=== PATIENT | female | born 1995 | race African-American/Black ===

== ENCOUNTER 2017-07-31 20:23 | Emergency (ER) | payer MEDICAID ==
[~2017-07-31] VITALS: Ht 160 cm; Wt 44.9 kg
[~2017-07-31 20:23] MED LIST: KEFLEX500 MG ORAL; NKM; PROVERA10 MG PO
[2017-07-31] MEDS ORDERED: IBUPROFEN600 MG ORAL (20:43)
[2017-07-31 21:01] VITALS: BP 127/80
--- NOTE | 2017-07-31 21:02 | Emergency Room Report ---
History of Present Illness General Chief Complaint: Sore Throat Source: Patient Present Illness HPI 21-year-old female presents with sore throat for 2 days. States sore throat, +mild dry cough. Pain with swallowing however has still been able to eat/drink. No change in voice. No pain with extension/movement of neck. Denies fever or chills. No sick contacts. Allergies: Coded Allergies: No Known Allergies (Unverified , 07/31/17) Patient History Past Medical History: see triage record Past Surgical History: none Pertinent Family History: none Last Menstrual Period: 06/2017 Now: No Reviewed Nursing Documentation: PMH: Agreed, PSxH: Agreed Nursing Documentation-PMH Past Medical History: No Stated History Hx Hypertension: Yes Review of Systems All Other Systems: negative except mentioned in HPI Physical Exam Vital Signs Date Time Temp Pulse Resp B/P (MAP) Pulse Ox O2 Delivery O2 Flow Rate FiO2 07/31/17 20:31 98.2 85 16 127/80 97 Room Air 98.2 Sp02 EP Interpretation: reviewed, normal General Appearance: normal inspection, well appearing, no apparent distress, alert, GCS 15, non-toxic Head: normocephalic, atraumatic Eyes: bilateral eye normal inspection, bilateral eye PERRL, bilateral eye EOMI ENT: uvula midline, pharyngeal erythema, other - no exudates Neck: normal inspection, full range of motion, supple Respiratory: normal inspection, lungs clear, normal breath sounds, no respiratory distress, no retraction, no wheezing, speaking full sentences, chest symmetrical Cardiovascular #1: normal inspection, regular rate, rhythm, no edema, normal capillary refill Cardiovascular #2: 2+ radial (R), 2+ radial (L) Gastrointestinal: normal inspection, non tender, soft, non-distended, no guarding Musculoskeletal: normal inspection, back normal, normal range of motion, non- tender Neurologic: normal inspection, alert, oriented x3, responsive, motor strength/ tone normal, sensory intact, normal gait, speech normal Psychiatric: normal inspection, judgement/insight normal, memory normal Skin: normal inspection, normal color, no rash, warm/dry, well hydrated, normal turgor Medical Decision Making Diagnostic Impression: Primary Impression: Viral pharyngitis ER Course 21-year-old female with sore throat DDX: Viral vs. infectious mononucleosis vs. bacterial pharyngitis vs. allergies Other serious causes such as REGULATORY AFFAIRS COORDINATOR / RPA / deep space neck infection history/physical most consistent with viral pharyngitis Plan: Motrin,. Abx not indicated at this time ER course: Patient remains stable in ED. Pt states improvement of pain with motrin. Disposition: Patient will be discharged to home. Patient will follow up with primary care doctor within 5 days. Strict return precautions discussed with patient such as worsening throat pain/swelling, dysphagia, high fever or chills, shortness of breath, abdominal pain, which may indicate severe illness. Patient verbalized understanding and agreed with plan. Please note that this Emergency Department Report was dictated using [employer] driver technology software, occasionally this can lead to erroneous entry secondary to interpretation by the dictation equipment. Last Vital Signs Date Time Temp Pulse Resp B/P (MAP) Pulse Ox O2 Delivery O2 Flow Rate FiO2 07/31/17 20:31 98.2 85 16 127/80 97 Room Air 98.2 Disposition: HOME, SELF-CARE Condition: Improved Scripts Ibuprofen* (MOTRIN*) 600 Mg Tablet 600 MG ORAL Q8H Y for For Pain, #30 TAB 0 Refills Prov: Vincenzo Adams M.D. 07/31/17 Patient Instructions: Sore Throat Vincenzo Adams M.D. Jul 31, 2017 21:02
== END 2017-08-01 01:18 | disposition home or self-care (01) ==
LOC: EMR 21:04
DX: J02.8 Acute pharyngitis due to other specified organisms (principal); B97.89 Other viral agents as the cause of diseases classified elsewhere; I10 Essential (primary) hypertension
CPT/HCPCS: 99283

== ENCOUNTER 2018-02-28 13:55 | Emergency (ER) | payer MEDICAID ==
[~2018-02-28] VITALS: Ht 160 cm; Wt 47.2 kg
[~2018-02-28 13:55] MED LIST changes: +IBUPROFEN600 MG ORAL
[2018-02-28 14:27] VITALS: BP 119/72
--- NOTE | 2018-02-28 14:46 | Emergency Room Report ---
History of Present Illness General Chief Complaint: Upper Extremity Injury Source: Patient Present Illness HPI 22-year-old female patient presents ER complaining of left thumbnail injury. Patient reports that earlier today one of her acrylic nails got caught on the bed and lifted her nailbed. Reports bleeding at site of injury, states it is well controlled with gauze. Reports she is right-hand dominant. Reports the nail was able to be pulled up however the "blood made it stick" and cannot be pulled up now. Denies loss of sensation. Denies loss of range of motion. Allergies: Coded Allergies: No Known Allergies (Unverified , 07/31/17) Patient History Past Medical History: see triage record Now: Yes - 7 weeks Reviewed Nursing Documentation: PMH: Agreed; PSxH: Agreed Nursing Documentation-PMH Past Medical History: No Stated History Hx Hypertension: Yes Review of Systems All Other Systems: negative except mentioned in HPI Physical Exam Vital Signs Date Time Temp Pulse Resp B/P (MAP) Pulse Ox O2 Delivery O2 Flow Rate FiO2 02/28/18 14:05 98.4 90 18 116/76 98 Room Air 98.4 Sp02 EP Interpretation: reviewed, normal General Appearance: well appearing, no apparent distress, alert, GCS 15, non- toxic Head: normocephalic, atraumatic Eyes: bilateral eye normal inspection, bilateral eye PERRL ENT: hearing grossly normal, normal pharynx, no angioedema, normal voice, uvula midline, moist mucus membranes Neck: full range of motion Respiratory: lungs clear, normal breath sounds, no rhonchi, no respiratory distress, no accessory muscle use, no wheezing, speaking full sentences Cardiovascular #1: regular rate, rhythm, no edema Cardiovascular #2: 2+ radial (R), 2+ radial (L) Musculoskeletal: back normal, digits/nails normal, gait/station normal, normal range of motion, non-tender, other - left thumbnail: Partially avulsed nail, no laceration, Cuticle intact, large acrylic nail present, dried blood present, no surrounding erythema or edema, sensation intact to light touch, Neurologic: alert, oriented x3, responsive, motor strength/tone normal, sensory intact Psychiatric: mood/affect normal Skin: no rash Lymphatic: no adenopathy Medical Decision Making PA Attestation Dr. Edwards is my supervising Physician whom patient management has been discussed with. Diagnostic Impression: Primary Impression: Nail avulsion, finger ER Course Pt. presents to the ED c/o thumbnail pain. Ddx considered but are not limited to ingrown toenail, nail avulsion, paronychia , felon, cellulitis, tinea unguinum. Vital signs: are WNL, pt. is afebrile ER COURSE: Physical exam shows: no loss, no damaged cuticle or surrounding tissue requiring laceration repair with sutures. full range of motion of fingers, sensation intact to light touch, no deformity, low suspicion for fracture, does not require x-ray at this time. Finger clean and dry using saline and peroxide. Wound dressed with sterile dressing and bacitracin. Will not remove nail, possible keep in place has splint, advised to followup with patient primary care provider. Discuss referral to hand specialist. contact information provided to patient. Informed patient can wash it tomorrow, but do not soak in water. Apply topical abx and redress wound. Followup with PCP. Wound check in 2-3 days. ER precautions given. DISCHARGE: Rx provided for Bacitracin Rx provided for Tylenol At this time pt is stable for d/c to home. Patient is resting comfortably, in no acute distress, nontoxic appearing, talking without difficulty. Patient to take medications as instructed Will provide with patient care instructions and any necessary prescriptions. Care plan and follow-up instructions provided. Patient instructed to follow-up with primary care provider in 3 - 5 days. Patient questions asked and answered. Patient reports understanding and agreement to treatment plan. ER precautions given. Patient instructed to return to ER immediately for any new or worsening of symptoms including but not limited to increasing SOB, persistent fever, chest pain, intractable vomiting. - Please note that this Emergency Department Report was dictated using [employer] customer service representative technology software, occasionally this can lead to erroneous entry secondary to interpretation by the dictation equipment. Last Vital Signs Date Time Temp Pulse Resp B/P (MAP) Pulse Ox O2 Delivery O2 Flow Rate FiO2 02/28/18 14:27 98.4 70 18 119/72 98 Room Air 98.4 Disposition: HOME, SELF-CARE Condition: Stable Scripts Bacitracin/Polymyxin B Sulfate (BACITRACIN-POLYMYXIN OINTMENT) 28.35 Gm Oint...g. 1 APPLIC TP BID, #28 GM Prov: Henry Botello 02/28/18 Acetaminophen* (TYLENOL EXTRA STRENGTH*) 500 Mg Tablet 500 MG ORAL Q8H PRN for Prn Headache/Temp > 101, #30 TAB 0 Refills Prov: Henry Botello 02/28/18 Patient Instructions: Nail Avulsion Additional Instructions: Followup with primary care provider in 3 -5 days. Request referral to hand specialist. Take medications as directed. Patient questions asked and answered. ER precautions given, patient instructed to return to ER immediately for any new or worsening of symptoms. Henry Botello Feb 28, 2018 14:46
[2018-02-28] MEDS ORDERED: Bacitracin Oint UD TOPIC ONE (15:00)
[2018-02-28] MEDS ORDERED: BACITRACIN-P28.35 GM TP (15:12)
[2018-02-28] MEDS ORDERED: TYLENOL EXTRA500 MG ORAL (15:12)
[2018-02-28 15:29] VITALS: BP 119/72
== END 2018-02-28 15:29 | disposition home or self-care (01) ==
LOC: EMR 14:41
DX: S61.102A Unspecified open wound of left thumb with damage to nail, initial encounter (principal); W23.0XXA Caught, crushed, jammed, or pinched between moving objects, initial encounter; Y92.003 Bedroom of unspecified non-institutional (private) residence as the place of occurrence of the external cause; I10 Essential (primary) hypertension
CPT/HCPCS: 99283

== ENCOUNTER 2018-04-16 20:20 | Emergency (ER) | payer MEDICAID ==
[~2018-04-16] VITALS: Ht 160 cm; Wt 48.5 kg
[~2018-04-16 20:20] MED LIST changes: +BACITRACIN-P28.35 GM TP; +TYLENOL EXTRA500 MG ORAL
[2018-04-16] MEDS ORDERED: NKM (20:44)
[2018-04-16] MEDS ORDERED: Albuterol ud Inhalation HHN ONE (21:00)
[2018-04-16 21:06] LABS: APPEARANCE,URINE CLEAR; BILIRUBIN, URINE NEGATIVE (NEGATIVE); GLUCOSE, URINE (UA) 1+ (NEGATIVE); KETONES,URINE 1+ (NEGATIVE); LEUKOCYTE ESTERASE ,URINE 2+ (NEGATIVE); NITRITE,URINE NEGATIVE (NEGATIVE); PH,URINE 6 (4.5-8.0); PROTEIN,URINE NEGATIVE (NEGATIVE); UROBILINOGEN,URINE 1 MG/DL (0.0-1.0)
[2018-04-16 21:07] LABS: COLOR,URINE YELLOW
--- NOTE | 2018-04-16 21:07 | Emergency Room Report ---
History of Present Illness General Chief Complaint: Dyspnea/Respdistress Source: Patient Present Illness HPI Patient is A2. Patient is partially 13 weeks . Patient presents emergency department today complaining of one day of abdominal cramping. She denies any vaginal discharge or vaginal bleeding or dysuria urinary frequency. Patient also complains of 3 months of exertional dyspnea. She states that she gets short of breath whenever she is walking or exercising. She denies any chest pain. Denies any cough runny nose or sore throat. No other complaint or noted. Symptoms noted to be severe. No other modifying factors. No other associated signs and symptoms. No other complaints were noted. Allergies: Coded Allergies: No Known Allergies (Unverified , 07/31/17) Patient History Past Medical History: HTN Past Surgical History: none Pertinent Family History: none Social History: Denies: smoking, alcohol use, drug use Last Menstrual Period: november 2017 Now: Yes : 5 Para: 2 Reviewed Nursing Documentation: PMH: Agreed; PSxH: Agreed Nursing Documentation-PMH Past Medical History: No Stated History Hx Hypertension: Yes Review of Systems All Other Systems: negative except mentioned in HPI Physical Exam Vital Signs Date Time Temp Pulse Resp B/P (MAP) Pulse Ox O2 Delivery O2 Flow Rate FiO2 04/16/18 20:40 98.4 100 16 115/69 100 Room Air Sp02 EP Interpretation: reviewed, normal General Appearance: normal inspection, well appearing, no apparent distress, alert Head: normocephalic, atraumatic Eyes: bilateral eye normal inspection ENT: normal ENT inspection, hearing grossly normal, normal voice Neck: normal inspection, full range of motion, supple, no bony tend Respiratory: normal inspection, lungs clear, normal breath sounds, no respiratory distress, no retraction, no wheezing Cardiovascular #1: regular rate, rhythm, no edema Gastrointestinal: normal inspection, normal bowel sounds, non tender, soft, no guarding, no hernia, other - Gravid uterus Genitourinary: no CVA tenderness Musculoskeletal: normal inspection, back normal, normal range of motion Neurologic: normal inspection, alert, responsive, speech normal Psychiatric: normal inspection, judgement/insight normal, mood/affect normal Skin: normal inspection, normal color, no rash Medical Decision Making Diagnostic Impression: Primary Impression: Dyspnea Additional Impression: Pelvic cramping ER Course Patient presents emergency department today with multiple complaints. Differential diagnoses include electrolyte abnormality, threatened AB, normal just name a few. Patient's shortness breath. Be secondary to either DVT pulmonary embolism asthma anemia just name a few. Patient's exam however is fairly benign. No evidence of DVT. No evidence of pulmonary embolism. No evidence of travel. We'll obtain laboratory workup ultrasound of the pelvis therapeutic trial of albuterol. And sign case out to Dr. Jose for final disposition. Last Vital Signs Date Time Temp Pulse Resp B/P (MAP) Pulse Ox O2 Delivery O2 Flow Rate FiO2 04/16/18 20:40 98.4 100 16 115/69 100 Room Air Jose Lovell MD Apr 16, 2018 21:07
[2018-04-16 21:20] VITALS: BP 115/69
[2018-04-16 21:27] LABS: BASOPHILS % (AUTO) 0.9 % (0.0-2.0); EOSINOPHILS % (AUTO) 5.2 % (0.0-3.0); HEMATOCRIT 34.9 % (37.0-47.0); HEMOGLOBIN 11.7 G/DL (12.0-16.0); MEAN CORPUSCULAR VOLUME 94 FL (80-99); MONOCYTES % (AUTO) 5.9 % (1.0-10.0); PLATELET COUNT 231 K/UL (150-450); RED BLOOD COUNT 3.72 M/UL (4.20-5.40); WHITE BLOOD COUNT 12.1 K/UL (4.8-10.8)
[2018-04-16 21:35] LABS: ANION GAP 8 mmol/L (5-15); BLOOD UREA NITROGEN 7 mg/dL (7-18); CALCIUM 9.1 MG/DL (8.5-10.1); CARBON DIOXIDE 24 MMOL/L (21-32); CHLORIDE 104 MMOL/L (98-107); CREATININE 0.5 MG/DL (0.55-1.30); POTASSIUM 3.3 MMOL/L (3.5-5.1); SODIUM 136 MMOL/L (136-145)
[2018-04-16 21:39] LABS: ALANINE AMINOTRANSFERASE 20 U/L (12-78); ALBUMIN 2.8 G/DL (3.4-5.0); ALBUMIN/GLOBULIN RATIO 0.7 (1.0-2.7); ALKALINE PHOSPHATASE 70 U/L (46-116); ASPARTATE AMINO TRANSFERASE 14 U/L (15-37); BILIRUBIN,TOTAL < 0.1 MG/DL (0.2-1.0)
[2018-04-16 23:10] VITALS: BP 118/73
[2018-04-16] MEDS ORDERED: ALBUTEROL SULF8.5 GM INH (23:15)
--- NOTE | 2018-04-17 02:11 | Emergency Room Report ---
Physical Exam Vital Signs Date Time Temp Pulse Resp B/P (MAP) Pulse Ox O2 Delivery O2 Flow Rate FiO2 04/16/18 20:40 98.4 100 16 115/69 100 Room Air 04/16/18 21:08 21 Medical Decision Making Diagnostic Impression: Primary Impression: Dyspnea Qualified Codes: R06.00 - Dyspnea, unspecified Additional Impression: Pelvic cramping ER Course Hospital Course 22 yo F present to ED c/o SOB. also c/o cramping. + Clinical course Patient initially seen and evaluated by Dr. Lovell; please see his note for full history and physical Labs- minimal leukocytosis, electrolytes okay, beta hCG greater than 40,000, UA unremarkable Pelvic ultrasound-IUP detected with heart rate Upon reassessment patient states she feels better. Breathing improved. We'll discharge with inhaler. Close follow-up with REFUGE WORKER. Diagnosis - dyspnea, pelvic crampng Stable and discharged to home with Rx albuterol. Followup with PMD/REFUGE WORKER. Return to ED if symptoms recur or worsen Labs Test 04/16/18 20:53 04/16/18 21:10 Urine Color Yellow Urine Appearance Clear Urine pH 6 (4.5-8.0) Urine Specific [place] 1.025 (1.005-1.035) Urine Protein Negative (NEGATIVE) Urine Glucose (UA) 1+ (NEGATIVE) Urine Ketones 1+ (NEGATIVE) Urine Blood Negative (NEGATIVE) Urine Nitrite Negative (NEGATIVE) Urine Bilirubin Negative (NEGATIVE) Urine Urobilinogen 1 MG/DL (0.0-1.0) Urine Leukocyte Esterase 2+ (NEGATIVE) Urine RBC 0-2 /HPF (0 - 2) Urine WBC 2-4 /HPF (0 - 2) Urine Squamous Epithelial Cells Few /LPF (NONE/OCC) Urine Bacteria Few /HPF (NONE) Urine HCG, Qualitative Positive (NEGATIVE) White Blood Count 12.1 K/UL (4.8-10.8) Red Blood Count 3.72 M/UL (4.20-5.40) Hemoglobin 11.7 G/DL (12.0-16.0) Hematocrit 34.9 % (37.0-47.0) Mean Corpuscular Volume 94 FL (80-99) Mean Corpuscular Hemoglobin 31.5 PG (27.0-31.0) Mean Corpuscular Hemoglobin Concent 33.6 G/DL (32.0-36.0) Red Cell Distribution Width 11.0 % (11.6-14.8) Platelet Count 231 K/UL (150-450) Mean Platelet Volume 9.2 FL (6.5-10.1) Neutrophils (%) (Auto) 69.0 % (45.0-75.0) Lymphocytes (%) (Auto) 19.0 % (20.0-45.0) Monocytes (%) (Auto) 5.9 % (1.0-10.0) Eosinophils (%) (Auto) 5.2 % (0.0-3.0) Basophils (%) (Auto) 0.9 % (0.0-2.0) Sodium Level 136 MMOL/L (136-145) Potassium Level 3.3 MMOL/L (3.5-5.1) Chloride Level 104 MMOL/L (98-107) Carbon Dioxide Level 24 MMOL/L (21-32) Anion Gap 8 mmol/L (5-15) Blood Urea Nitrogen 7 mg/dL (7-18) Creatinine 0.5 MG/DL (0.55-1.30) Estimat Glomerular Filtration Rate > 60 mL/min (>60) Glucose Level 106 MG/DL (74-106) Calcium Level 9.1 MG/DL (8.5-10.1) Total Bilirubin < 0.1 MG/DL (0.2-1.0) Aspartate Amino Transf (AST/SGOT) 14 U/L (15-37) Alanine Aminotransferase (ALT/SGPT) 20 U/L (12-78) Alkaline Phosphatase 70 U/L (46-116) Total Protein 7.0 G/DL (6.4-8.2) Albumin 2.8 G/DL (3.4-5.0) Globulin 4.2 g/dL Albumin/Globulin Ratio 0.7 (1.0-2.7) Lipase 88 U/L (73-393) Human Chorionic Gonadotropin, Quant 47757 mIU/mL (1-6) CT/MRI/US Diagnostic Results CT/MRI/US Diagnostic Results : Imaging Test Ordered: OB US Impression IUP noted. + FHR. no free fluid or blood Last Vital Signs Date Time Temp Pulse Resp B/P (MAP) Pulse Ox O2 Delivery O2 Flow Rate FiO2 04/16/18 23:10 98.4 70 19 118/73 99 Room Air 21 Status: improved Disposition: HOME, SELF-CARE Condition: Stable Scripts Albuterol Sulfate* (ALBUTEROL SULFATE MDI*) 8.5 Gm Hfa.aer.ad 2 PUFF INH Q6H, #1 EA 0 Refills Prov: Alexis Jose MD 04/16/18 Referrals: [facility] (PCP) Patient Instructions: Threatened Miscarriage, [id number] Alexis Jose MD Apr 17, 2018 02:11
--- NOTE | 2018-04-17 11:32 | Diagnostic Imaging Report ---
Indication: Abdominal pain, cramping, patient Technique: Transabdominal and transvaginal images Comparison: 11/27/2012 nonobstructive pelvic ultrasound Findings: Exam is somewhat limited, as fetus was apparently experiencing hiccups during the examination, per discussion with technologist Within the endometrium, there is a single live intrauterine . This demonstrates positive heart activity, heart rate 186 bpm. Posterior fundal placenta, clears the internal cervical os. Cervix is closed. Grossly normal amniotic fluid volume. measurements as follows: Biparietal diameter 26 mm, 14 weeks 4 days; head circumference 98 mm, 14 weeks 4 days; abdominal circumference 83 mm, 14 weeks 4 days; femur length 16 mm, 14 weeks 4 days. Estimated gestational age by average of ultrasound measurements is 14 weeks 4 days. Estimated gestational age by dates is not available. Estimated date of delivery 10/11/2018. Due to early stage of and emergent nature of the exam, detailed assessment of anatomy not performed. The kidneys, grossly normal spine, normal cord insertion, four-chamber heart are demonstrated. Neither ovary is demonstrated. No free cul-de-sac fluid demonstrated. Impression: 14 week 4 day, by average of ultrasound measurements, single live intrauterine . No unusual features
== END 2018-04-16 23:30 | disposition home or self-care (01) ==
LOC: EMR 20:57
DX: O26.891 Other specified pregnancy related conditions, first trimester (principal); R06.00 Dyspnea, unspecified; R25.2 Cramp and spasm; O16.1 Unspecified maternal hypertension, first trimester; Z3A.12 12 weeks gestation of pregnancy
CPT/HCPCS: 36415; 76801; 76805; 76830; 80053; 81003; 81025; 83690; 84702; 85025; 86850; 86900; 86901; 94640; 94664; 99284

== ENCOUNTER 2019-04-12 15:44 | Emergency (ER) | payer MEDICAID ==
[~2019-04-12] VITALS: Ht 160 cm; Wt 49.0 kg
[~2019-04-12 15:44] MED LIST changes: +ALBUTEROL SULF8.5 GM INH
[2019-04-12 16:08] VITALS: BP 121/82
[2019-04-12] MEDS ORDERED: Omnipaque-300 100ml vial INJ PRN (16:30)
[2019-04-12 17:01] LABS: BASOPHILS % (AUTO) 1.4 % (0.0-2.0); EOSINOPHILS % (AUTO) 3.2 % (0.0-3.0); HEMATOCRIT 40.4 % (37.0-47.0); HEMOGLOBIN 13.6 G/DL (12.0-16.0); LYMPHOCYTES % (AUTO) 29.6 % (20.0-45.0); MEAN CORPUSCULAR VOLUME 95 FL (80-99); MONOCYTES % (AUTO) 4.9 % (1.0-10.0); NEUTROPHILS % (AUTO) 60.8 % (45.0-75.0); PLATELET COUNT 266 K/UL (150-450); RED BLOOD COUNT 4.27 M/UL (4.20-5.40); RED CELL DISTRIBUTION WIDTH 11.2 % (11.6-14.8); WHITE BLOOD COUNT 8.2 K/UL (4.8-10.8)
[2019-04-12 17:20] LABS: APPEARANCE,URINE TURBID; BILIRUBIN, URINE NEGATIVE (NEGATIVE); COLOR,URINE RED; GLUCOSE, URINE (UA) NEGATIVE (NEGATIVE); KETONES,URINE 1+ (NEGATIVE); LEUKOCYTE ESTERASE ,URINE 3+ (NEGATIVE); NITRITE,URINE NEGATIVE (NEGATIVE); PH,URINE 7 (4.5-8.0); PROTEIN,URINE 4+ (NEGATIVE); UROBILINOGEN,URINE 1 MG/DL (0.0-1.0)
[2019-04-12 17:27] LABS: ANION GAP 8 mmol/L (5-15); BLOOD UREA NITROGEN 11 mg/dL (7-18); CALCIUM 9.2 MG/DL (8.5-10.1); CARBON DIOXIDE 31 MMOL/L (21-32); CHLORIDE 103 MMOL/L (98-107); CREATININE 0.7 MG/DL (0.55-1.30); POTASSIUM 3.5 MMOL/L (3.5-5.1); SODIUM 142 MMOL/L (136-145)
[2019-04-12 17:32] LABS: ALANINE AMINOTRANSFERASE 26 U/L (12-78); ALBUMIN 4.3 G/DL (3.4-5.0); ALBUMIN/GLOBULIN RATIO 1.1 (1.0-2.7); ALKALINE PHOSPHATASE 98 U/L (46-116); ASPARTATE AMINO TRANSFERASE 19 U/L (15-37); BILIRUBIN,TOTAL 0.5 MG/DL (0.2-1.0)
--- NOTE | 2019-04-12 18:23 | Diagnostic Imaging Report ---
Indication: Abdominal pain Technique: Continuous helical transaxial imaging of the abdomen and pelvis was obtained from the lung bases to the pubic symphysis during intravenous contrast administration. Coronal 2-D reformats were also obtained. Study obtained in a Siemens sensation [address] Automatic Exposure Control was utilized. Total Dose length Product (DLP): 498.[address] Dose Index Volume (CTDIvol): 6 mGy Comparison: None Findings: The lung bases are clear. The liver and kidneys, adrenal glands, pancreas and spleen are unremarkable. There is a tiny cyst in the lower pole the right kidney. Bowel gas pattern is nonobstructive. Uterus noted. Urinary bladder is nondistended. Appendix is normal. IMPRESSION: No acute findings. Normal appendix. The CT scanner at [facility] is accredited by the [place] [employer] and the scans are performed using dose optimization techniques as appropriate to a performed exam including Automatic Exposure control.
--- NOTE | 2019-04-12 18:29 | Emergency Room Report ---
History of Present Illness General Chief Complaint: Abdominal Pain Source: Patient Present Illness HPI 23-year-old female with no symptom past medical history who is 5 months and never had her visit with her NEON MOLDER here complaining of 3 days of epigastric abdominal pain and suprapubic pain rating at 5 out of 10 , intermittent, without radiation. Denies nausea and vomiting, diarrhea and constipation. Denies fever and chills, URI symptoms, urinary frequency, and other associated symptoms. Has not taken medication for symptom relief. Patient appears to be slim with abdomen still not distended. Reports that her menses have resumed and she is currently on her period. Allergies: Coded Allergies: No Known Allergies (Unverified , 07/31/17) Patient History Past Medical History: see triage record Past Surgical History: unable to obtain Pertinent Family History: unable to obtain Last Menstrual Period: CURRENTLY ON HER PERIOD Now: No Immunizations: UTD Reviewed Nursing Documentation: PMH: Agreed; PSxH: Agreed Nursing Documentation-PMH Past Medical History: No History, Except For Hx Hypertension: Yes Review of Systems All Other Systems: negative except mentioned in HPI Physical Exam Vital Signs Date Time Temp Pulse Resp B/P (MAP) Pulse Ox O2 Delivery O2 Flow Rate FiO2 04/12/19 16:02 98.2 85 16 112/75 (87) 98 Room Air Sp02 EP Interpretation: reviewed, normal General Appearance: no apparent distress, alert, GCS 15, non-toxic Head: normocephalic, atraumatic Eyes: bilateral eye normal inspection, bilateral eye PERRL ENT: hearing grossly normal, normal pharynx, no angioedema, normal voice Neck: full range of motion, supple/symm/no masses Respiratory: chest non-tender, lungs clear, normal breath sounds, no wheezing, speaking full sentences Cardiovascular #1: regular rate, rhythm, no edema, no murmur Gastrointestinal: normal bowel sounds, non tender, soft, no guarding, no hernia , no pulsatile mass, no rebound, distended Rectal: deferred Genitourinary: normal inspection, no CVA tenderness Musculoskeletal: back normal, normal range of motion, no calf tenderness, gait/ station normal, non-tender Neurologic: alert, motor strength/tone normal, oriented x3, sensory intact, responsive, speech normal Psychiatric: judgement/insight normal, memory normal, mood/affect normal, no suicidal/homicidal ideation Skin: no rash Lymphatic: no adenopathy Medical Decision Making PA Attestation All diagnoses and treatment plans were reviewed and discussed with my supervising physician Dr. Bob Diagnostic Impression: Primary Impression: UTI (urinary tract infection) ER Course 23-year-old female with no symptom past medical history who is 5 months and never had her visit with her NEON MOLDER here complaining of 3 days of epigastric abdominal pain and suprapubic pain rating at 5 out of 10 , intermittent, without radiation. Denies nausea and vomiting, diarrhea and constipation. Denies fever and chills, URI symptoms, urinary frequency, and other associated symptoms. Has not taken medication for symptom relief. Patient appears to be slim with abdomen still not distended. Reports that her menses have resumed and she is currently on her period. Ddx considered but are not limited to: UTI, pyelonephritis, appendicitis, cholecystitis Vital signs: are WNL, pt. is afebrile H&PE are most consistent with: UTI ORDERS: UA, CBC, CMP, lipase, urine , CT scan abdomen ED INTERVENTIONS: None required at this time. DISCHARGE: At this time pt. is stable for d/c to home. Will provide printed patient care instructions, and any necessary prescriptions. Care plan and follow up instructions have been discussed with the patient prior to discharge. Patient to follow-up with her shingle inspector regarding abdominal distention also take medication as directed if worsening symptoms return to the emergency room CT/MRI/US Diagnostic Results CT/MRI/US Diagnostic Results : Imaging Test Ordered: ct abd pelvis with contrast Impression ABDOMEN: Liver: Normal Gallbladder and bile ducts: Normal Pancreas: Normal Spleen: Normal Adrenals: Normal . Kidneys and ureters: Normal Stomach and bowel: Normal Appendix: Normal PELVIS: Bladder: Normal Reproductive: Normal ABDOMEN and PELVIS: Intraperitoneal space: No free intraperitoneal fluid or free intraperitoneal gas. Bones/joints: Unremarkable. No acute fracture. No dislocation. Soft tissues: Normal Vasculature: Normal. Lymph nodes: Normal . IMPRESSION: No acute abdominal or pelvic pathology Last Vital Signs Date Time Temp Pulse Resp B/P (MAP) Pulse Ox O2 Delivery O2 Flow Rate FiO2 04/12/19 16:08 98.3 86 18 121/82 98 Room Air Disposition: HOME, SELF-CARE Condition: Stable Scripts Nitrofurantoin Monohyd/M-Cryst* (MACROBID 100 MG*) 100 Mg Capsule 100 MG ORAL EVERY 12 HOURS for 7 Days, #14 CAP Prov: Adrián Malhotra 04/12/19 Referrals: [facility] (PCP) Patient Instructions: Abdominal Pain, Adult, Urinary Tract Infection, Easy-to- Read Additional Instructions: Take medication as directed, follow-up with your primary care provider, if worsening symptoms return to the emergency room Ardián Malhotra Apr 12, 2019 18:29
[2019-04-12] MEDS ORDERED: NITROFURANTOIN100 M2 ORAL (18:30)
[2019-04-12 18:40] VITALS: BP 132/75
== END 2019-04-12 18:40 | disposition home or self-care (01) ==
LOC: EMR 16:23
DX: N39.0 Urinary tract infection, site not specified (principal); I10 Essential (primary) hypertension
CPT/HCPCS: 36415; 74177; 80053; 81003; 81025; 83690; 85025; 87086; Q9967; Z7502; 99284

== ENCOUNTER 2020-07-31 16:42 | Emergency (ER) | payer MEDICAID ==
[~2020-07-31] VITALS: Ht 160 cm; Wt 47.2 kg
[~2020-07-31 16:42] MED LIST changes: +NITROFURANTOIN100 M2 ORAL
[2020-07-31 17:40] VITALS: BP 125/63
[2020-07-31] MEDS ORDERED: Dextrose 5%/Lactated Ringer's 1,000 ML IV SCH (17:45)
--- NOTE | 2020-07-31 17:46 | Emergency Room Report ---
History of Present Illness General Chief Complaint: Nausea, Vomiting, and Diarrhea Source: Patient Present Illness HPI Patient is a 24-year-old female presents for increased abdominal discomfort and vomiting. Reports having recently taken a positive test. States she had abnormal menses and last period was end of May approximately . Reports having multiple episodes of nonbilious vomiting. Decreased appetite and ability to take oral fluids. Denies any fever. Had no productive cough. Denies any diarrhea. Allergies: Coded Allergies: No Known Allergies (Unverified , 07/31/17) COVID-19 Screening Contact w/high risk pt: No Experienced COVID-19 symptoms?: No COVID-19 Testing performed MANAGER EQUITY: No Patient History Past Medical History: see triage record Last Menstrual Period: 06/08/20 Reviewed Nursing Documentation: PMH: Agreed; PSxH: Agreed Nursing Documentation-PMH Past Medical History: No Stated History Hx Hypertension: Yes Review of Systems All Other Systems: negative except mentioned in HPI Physical Exam Vital Signs Date Time Temp Pulse Resp B/P (MAP) Pulse Ox O2 Delivery O2 Flow Rate FiO2 07/31/20 17:15 98.1 78 16 126/87 (100) 98 Room Air Sp02 EP Interpretation: reviewed, normal General Appearance: normal inspection, well appearing, no apparent distress, alert, GCS 15 Head: atraumatic ENT: normal ENT inspection, hearing grossly normal, normal voice Neck: normal inspection, full range of motion, supple, no bony tend Respiratory: normal inspection, lungs clear, normal breath sounds, no respiratory distress, no retraction, no wheezing Cardiovascular #1: regular rate, rhythm, no edema Gastrointestinal: normal inspection, normal bowel sounds, non tender, soft, no guarding, no hernia Genitourinary: no CVA tenderness Musculoskeletal: normal inspection, back normal, normal range of motion Neurologic: alert, motor strength/tone normal, 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 Differential diagnosis include was not limited to hyperemesis gravidarum, bowel obstruction, gastroenteritis among others. Because of complexity of patient's case laboratory tests and imaging studies were ordered.Patient started on IV fluids as well as antiemetics. Ultrasound showed intrauterine with adequate heart tones. Patient was started on IV hydration was able to subsequently tolerate oral fluids. Patient denies any pain throughout stay. patient states she subsequently felt better and wanted to go home. She was given IV antibiotics due to her urinary infection. Patient was advised to follow-up with her [facility] for recheck. She advised to return if worse. This medical record is generated with [employer] mail superintendent software. There may be some mail superintendent discrepancies related to use of this software Labs Test 07/31/20 17:36 07/31/20 18:26 White Blood Count 11.1 K/UL (4.8-10.8) Red Blood Count 4.72 M/UL (4.20-5.40) Hemoglobin 14.5 G/DL (12.0-16.0) Hematocrit 45.3 % (37.0-47.0) Mean Corpuscular Volume 96 FL (80-99) Mean Corpuscular Hemoglobin 30.7 PG (27.0-31.0) Mean Corpuscular Hemoglobin Concent 31.9 G/DL (32.0-36.0) Red Cell Distribution Width 12.1 % (11.6-14.8) Platelet Count 327 K/UL (150-450) Mean Platelet Volume 9.6 FL (6.5-10.1) Neutrophils (%) (Auto) 69.9 % (45.0-75.0) Lymphocytes (%) (Auto) 21.8 % (20.0-45.0) Monocytes (%) (Auto) 5.8 % (1.0-10.0) Eosinophils (%) (Auto) 0.8 % (0.0-3.0) Basophils (%) (Auto) 1.7 % (0.0-2.0) Sodium Level 137 MMOL/L (136-145) Potassium Level 3.3 MMOL/L (3.5-5.1) Chloride Level 97 MMOL/L (98-107) Carbon Dioxide Level 28 MMOL/L (21-32) Anion Gap 13 mmol/L (5-15) Blood Urea Nitrogen 5 mg/dL (7-18) Creatinine 0.7 MG/DL (0.55-1.30) Estimat Glomerular Filtration Rate > 60 mL/min (>60) Glucose Level 79 MG/DL (74-106) Calcium Level 9.7 MG/DL (8.5-10.1) Total Bilirubin 0.9 MG/DL (0.2-1.0) Aspartate Amino Transf (AST/SGOT) 17 U/L (15-37) Alanine Aminotransferase (ALT/SGPT) 19 U/L (12-78) Alkaline Phosphatase 79 U/L (46-116) Total Protein 8.2 G/DL (6.4-8.2) Albumin 4.7 G/DL (3.4-5.0) Globulin 3.5 g/dL Albumin/Globulin Ratio 1.3 (1.0-2.7) Lipase 76 U/L (73-393) Human Chorionic Gonadotropin, Qual Positive (NEGATIVE) Human Chorionic Gonadotropin, Quant 73340 mIU/mL (1-6) Urine Color Yellow Urine Appearance Cloudy Urine pH 6 (4.5-8.0) Urine Specific [place] 1.025 (1.005-1.035) Urine Protein 2+ (NEGATIVE) Urine Glucose (UA) Negative (NEGATIVE) Urine Ketones 4+ (NEGATIVE) Urine Blood 1+ (NEGATIVE) Urine Nitrite Negative (NEGATIVE) Urine Bilirubin Negative (NEGATIVE) Urine Urobilinogen Normal MG/DL (0.0-1.0) Urine Leukocyte Esterase 3+ (NEGATIVE) Urine RBC 0-2 /HPF (0 - 2) Urine WBC 20-30 /HPF (0 - 2) Urine Squamous Epithelial Cells Few /LPF (NONE/OCC) Urine Bacteria Moderate /HPF (NONE) Last Vital Signs Date Time Temp Pulse Resp B/P (MAP) Pulse Ox O2 Delivery O2 Flow Rate FiO2 07/31/20 17:40 78 18 125/63 100 Room Air 07/31/20 17:15 98.1 Status: improved Disposition: HOME, SELF-CARE Condition: Stable Scripts Cephalexin* (KEFLEX*) 500 Mg Capsule 500 MG ORAL EVERY 6 HOURS, #28 CAP Prov: Igor Sun MD 07/31/20 Doxylamine/Pyridoxine Hcl (MARK KLEIN 10-10 MG TABLET) 1 Each Tablet. 1 EACH PO Q, #30 TAB Prov: Igor Sun MD 07/31/20 Referrals: NON PHYSICIAN (PCP) Igor Sun MD Jul 31, 2020 17:46
--- NOTE | 2020-07-31 18:02 | NUR ---
pt arrived. states nausea, vomiting, unable to keep anything down for 1 week. pt states she took a test last week and it was positive. pt states , LMP 06/09/20. pt denies cough/fever/sob. iv placed, pt medicated per eMAR. blood sent to lab. pt unable to obtain urine sample. pt placed on monitor.
[2020-07-31 18:07] LABS: ANION GAP 13 mmol/L (5-15); BLOOD UREA NITROGEN 5 mg/dL (7-18); CALCIUM 9.7 MG/DL (8.5-10.1); CARBON DIOXIDE 28 MMOL/L (21-32); CHLORIDE 97 MMOL/L (98-107); CREATININE 0.7 MG/DL (0.55-1.30); POTASSIUM 3.3 MMOL/L (3.5-5.1); SODIUM 137 MMOL/L (136-145)
[2020-07-31 18:11] LABS: ALANINE AMINOTRANSFERASE 19 U/L (12-78); ALBUMIN 4.7 G/DL (3.4-5.0); ALBUMIN/GLOBULIN RATIO 1.3 (1.0-2.7); ALKALINE PHOSPHATASE 79 U/L (46-116); ASPARTATE AMINO TRANSFERASE 17 U/L (15-37); BILIRUBIN,TOTAL 0.9 MG/DL (0.2-1.0)
[2020-07-31 18:33] LABS: BASOPHILS % (AUTO) 1.7 % (0.0-2.0); EOSINOPHILS % (AUTO) 0.8 % (0.0-3.0); HEMATOCRIT 45.3 % (37.0-47.0); HEMOGLOBIN 14.5 G/DL (12.0-16.0); LYMPHOCYTES % (AUTO) 21.8 % (20.0-45.0); MEAN CORPUSCULAR VOLUME 96 FL (80-99); MONOCYTES % (AUTO) 5.8 % (1.0-10.0); NEUTROPHILS % (AUTO) 69.9 % (45.0-75.0); PLATELET COUNT 327 K/UL (150-450); RED BLOOD COUNT 4.72 M/UL (4.20-5.40); RED CELL DISTRIBUTION WIDTH 12.1 % (11.6-14.8); WHITE BLOOD COUNT 11.1 K/UL (4.8-10.8)
[2020-07-31 18:37] LABS: APPEARANCE,URINE CLOUDY; BILIRUBIN, URINE NEGATIVE (NEGATIVE); GLUCOSE, URINE (UA) NEGATIVE (NEGATIVE); KETONES,URINE 4+ (NEGATIVE); LEUKOCYTE ESTERASE ,URINE 3+ (NEGATIVE); NITRITE,URINE NEGATIVE (NEGATIVE); PH,URINE 6 (4.5-8.0); PROTEIN,URINE 2+ (NEGATIVE); UROBILINOGEN,URINE NORMAL MG/DL (0.0-1.0)
[2020-07-31 18:42] LABS: COLOR,URINE YELLOW
--- NOTE | 2020-07-31 18:46 | NUR ---
urine sample sent. pt on monitor. pt denies pain at this time. pt medicated per eMAR.
[2020-07-31 19:00] VITALS: BP 114/70
[2020-07-31] MEDS ORDERED: cefTRIAXone 1 GM in NS 55 ML IVPB ONE (19:00)
--- NOTE | 2020-07-31 19:30 | NUR ---
ED Nurse Note: Recieved report from am nurse to resume care, pt ambulating from bathroom, assisted back to bed, is awake, alert and oriented x 4, has patent IV site in right ac area, antibiotic hung as ordered, pt denies pain or vaginal bleeding, on cardiac monitoring, will continue to closely monitor.
[2020-07-31] MEDS ORDERED: CEPHALEXIN500 MG ORAL (19:49)
[2020-07-31] MEDS ORDERED: DICLEGIS DR 101 EACH PO (19:49)
[2020-07-31 21:00] VITALS: BP 119/74
--- NOTE | 2020-07-31 21:00 | NUR ---
ED Nurse Note: Pt completed bedside ultrasdound, tolerated well, also given oral trial, tolerated well with no emesis or pain, pt compoleting IV fluids then d/c, v/s stable, IV site patent, nad noted at this time, will continue to closely monitor.
--- NOTE | 2020-07-31 22:06 | NUR ---
ER DISCHARGE NOTE: Patient is cleared to be discharged per ERMD, pt is aox4, on room air, with stable vital signs. pt was given dc and prescription instructions, pt was able to verbalize understanding, pt id band and iv site removed without complications. pt is able to ambulate with steady gait. pt took all belongings.
[2020-07-31 22:07] VITALS: BP 119/74
--- NOTE | 2020-07-31 22:44 | Diagnostic Imaging Report ---
EXAM: US First Trimester , Transabdominal and Transvaginal CLINICAL HISTORY: ABD PAIN TECHNIQUE: Real-time transabdominal and transvaginal obstetrical ultrasound of the maternal pelvis and a first trimester with image documentation. Transvaginal imaging was used for better evaluation of the fetus and adnexa. COMPARISON: No relevant prior studies available. FINDINGS: Gestation: Single viable intrauterine gestation. Mean sac diameter. 2.5 cm, 6 weeks 6 days. [place]-rump length 0.96 cm, 7 weeks 0 days. Ultrasound age 6 weeks 6 days. LOUIE: Ultrasound LOUIE 03/20/2021 LMP. LOUIE 03/20/2021 Placenta/amniotic fluid: Cannot be adequately evaluated due to the early gestational age. Uterus/cervix: Unremarkable. No myometrial mass. Ovaries: Left ovary 3 cm Right ovary 3 cm No mass. Free fluid: No free fluid. Other findings: No acute abnormality seen. EGA by LMP 6 weeks 6 days IMPRESSION: 1. Single viable intrauterine gestation. 2. No acute abnormality seen. 3. EGA 6 weeks 6 days, concordant with the EGA by LMP. 4. Otherwise unremarkable study.
== END 2020-07-31 22:05 | disposition home or self-care (01) ==
LOC: EMR 17:31
DX: O21.0 Mild hyperemesis gravidarum (principal); O23.41 Unspecified infection of urinary tract in pregnancy, first trimester; Z3A.01 Less than 8 weeks gestation of pregnancy
CPT/HCPCS: 36415; 76801; 76817; 80053; 81003; 83690; 84702; 84703; 85025; 87086; 96361; 96365; 96375; J0696; J2405; J7030; Z7502; 99284